=== PATIENT | female | born 1995 | race Caucasian/White ===

== ENCOUNTER → 2020-09-25 | Day surgery (SDC) | payer OTHER ==
[~2020-09-25] MED LIST: FLOVENT 440.088 GM/I INH; FOLTX TABLET1 EACH PO; VENTOLIN HFA 66.7 GM INH; XYZAL5 MG PO
== END | disposition home or self-care (01) ==
LOC: OR 07:22
PROVIDERS: Internal Medicine Gastroenterology
PROC: 0DBE8ZX Excision of Large Intestine, Via Natural or Artificial Opening Endoscopic, Diagnostic (ICD-10-PCS; 2020-09-25)
PROC: 0DBB8ZX Excision of Ileum, Via Natural or Artificial Opening Endoscopic, Diagnostic (ICD-10-PCS; principal; 2020-09-25 10:00)
DX: K52.9 Noninfective gastroenteritis and colitis, unspecified (principal); K64.0 First degree hemorrhoids; J45.909 Unspecified asthma, uncomplicated; K21.9 Gastro-esophageal reflux disease without esophagitis; K91.5 Postcholecystectomy syndrome; E66.01 Morbid (severe) obesity due to excess calories; Z68.33 Body mass index [BMI] 33.0-33.9, adult; Z79.899 Other long term (current) drug therapy; Z20.822 Contact with and (suspected) exposure to COVID-19
CPT/HCPCS: 84703; J2250; J2704; J7040

== ENCOUNTER 2021-01-18 08:34 | Emergency (ER) | payer OTHER ==
[2021-01-18 09:43] LABS: HEMOGLOBIN 13.4 gm/dl (12.3-15.3); RED BLOOD COUNT 4.49 M/UL (4.00-5.10); WHITE BLOOD COUNT 5.7 K/UL (4.5-11.0)
[2021-01-18 10:01] LABS: BUN/CREATININE RATIO 13 (0-10)
== END 2021-01-18 11:40 | disposition home or self-care (01) ==
LOC: ER1 08:34
PROVIDERS: Physician Assistant Medical
DX: J06.9 Acute upper respiratory infection, unspecified (principal); J45.909 Unspecified asthma, uncomplicated; Z90.49 Acquired absence of other specified parts of digestive tract
CPT/HCPCS: 71046; 80053; 85025; 85610; 85730; 99283

== ENCOUNTER → 2021-05-26 | Outpatient (CLI) | payer OTHER | LOC: EXRD 05-20 15:15 | DX: R59.0 Localized enlarged lymph nodes (principal) | CPT/HCPCS: 76536 ==

== ENCOUNTER → 2022-03-20 | Outpatient (CLI) | payer OTHER | LOC: KOH-I 14:28 | DX: M25.561 Pain in right knee (principal) | CPT/HCPCS: 73562 ==